=== PATIENT | female | born 1940 | race Caucasian/White ===

== ENCOUNTER 2019-03-13 15:27 | Emergency (ER) | payer MEDICARE ==
[~2019-03-13 15:27] MED LIST: Sodium Chloride Irrig Solution 250 ML BOT ONE
--- NOTE | 2019-03-13 15:59 | RAD ---
Radiograph right leg tibia-fibula 2 views: HISTORY: 78-year-old female with laceration injury FINDINGS: Osteopenia. No fracture of tibia or fibula. No radiopaque foreign body. Soft tissue edema. IMPRESSION: 1. No radiopaque foreign body or fracture. 2. Soft tissue edema.
[2019-03-13 16:07] LABS: #Basophils 0.1 thou/uL (0.0-0.2); #Eosinphils 0.3 thou/uL (0.0-0.7); #Lymphocytes 2.1 thou/uL (1.20-3.40); #Monocytes 0.8 thou/uL (0.11-0.59); #Neutrophils 7.4 thou/uL (1.40-6.50); %Basophils 0.9 % (0.0-1.0); %Eosinophils 3.1 % (0.0-10.0); %Lymphocytes 19.7 % (21.0-51.0); %Monocytes 7.7 % (0.0-10.0); %Neutrophils 68.6 % (42.0-75.0); Hemoglobin 11.9 g/dL (12.0-16.0); Mean Corpuscular HGB CONC 33.6 g/dL (32.0-36.0); Mean Corpuscular Hemoglobin 32.5 pg (27.0-31.0); Mean Corpuscular Volume 96.9 fL (78.0-98.0); Mean Platelet Volume 8.9 fL (7.4-10.4); Platelet Count 161 thou/uL (130-400); RBC Distribution Width 12.3 % (11.5-14.5); Red Blood Cell (RBC) Count 3.64 mill/uL (4.20-5.40); White Blood Cell (WBC) Count 10.7 thou/uL (4.8-10.8)
[2019-03-13 16:24] LABS: ALT (SGPT) 37 U/L (8-55); AST (SGOT) 41 U/L (5-34); Albumin 4.1 g/dL (3.4-4.8); Alkaline Phosphatase 114 U/L (40-150); Anion Gap 18 mmol/L (10-20); BUN (Urea Nitrogen) 49 mg/dL (9.8-20.1); Bilirubin, Total 0.4 mg/dL (0.2-1.2); CK (CPK) 145 U/L (29-168); Calc. Creatinine Clearance 0 mL/min (70-130); Carbon Dioxide 23 mmol/L (23-31); Chloride 105 mmol/L (98-107); Estimated GFR-MDRD 19; Globulin 2.9 g/dL (2.4-3.5); Glucose 260 mg/dL (83-110); Lipase 45 U/L (8-78); Potassium 5.2 mmol/L (3.5-5.1); Sodium 141 mmol/L (136-145)
--- NOTE | 2019-03-13 16:43 | CT ---
CT BRAIN NONCONTRAST: DATE: 03/13/2019 HISTORY: 78-year-old female status post head trauma FINDINGS: There is no evidence of acute intra-axial or extra-axial hemorrhage. There is no midline shift or any other mass effect. There is no extra-axial fluid collection. There is no evidence of obstructive hydrocephalus. Calvarium is intact. There are low attenuation areas in the white matter. These are no nspecific, but in a patient of this age, they are probably chronic ischemic white matter changes due to microvascular atherosclerosis. IMPRESSION: 1) No acute intracranial findings. 2) chronic ischemic white matter changes.
--- NOTE | 2019-03-13 16:45 | CT ---
CT CERVICAL SPINE NONCONTRAST: DATE: 03/13/2019 HISTORY: cervical trauma FINDINGS: There are no jumped or perched facets. There is no evidence of acute fracture. The vertebral body hei ghts are maintained. There is no prevertebral soft tissue swelling. IMPRESSION: No evidence of acute fracture or acute traumatic subluxation.
--- NOTE | 2019-03-13 16:55 | CT ---
CT THORAX NONCONTRAST CT ABDOMEN NONCONTRAST CT PELVIS NONCONTRAST CT THORACIC SPINE NONCONTRAST CT LUMBAR SPINE NONCONTRAST: (Trauma protocol) DATE: 03/13/2019 HISTORY: Trauma to the chest, abdomen, and pelvis TECHNIQUE: IV iodinated contrast media not administered because of chronic kidney disease.. No oral contrast media. Single phase scans of thorax, abdomen, and pelvis. Sagittal reconstructions of thoracic and lumbar spine. FINDINGS: Evaluation of laceration of organs is limited without IV contrast. Lungs: No contusion. Pleura: No pneumothorax or hemothorax. Thoracic aorta: No aneurysm or rupture. Mediastinum: No hematoma. Abdomen and pelvis: Liver: No surrounding fluid. Spleen: No surrounding fluid. Pancreas: No surrounding fluid or fat stranding. Kidneys: No hydronephrosis. 1.5 x 1.5 cm exophytic round mass protruding from posterior aspect of lef t renal midpole with density of 30 5HU. No surrounding fluid. Bladder: No gross evidence of rupture. Abdominal aorta: No aneurysm or rupture. Small bowel: No dilation. Colon: No adjacent fat stranding. Free air: None. Free fluid: None. Skeleton: Ribs: No grossly displaced acute fracture. Sternum: No grossly displaced acute fracture. Thoracic spine: No acute compression fracture. Lumbar spine: No acute compression fracture. Pelvis: No grossly displaced acute fracture. No dislocation. Multiple irregularly-shaped, ill-defined soft tissue densities throughout the subcutaneous fat of the pannus superficial to the lower anterior abdominal wall. IMPRESSION: 1. No evidence of acute traumatic injury within the thorax, abdomen, or pelvis. 2. Evidence for extensive contusion of abdominal pannus adipose, superficial to the lower anterior ab dominal wall 3. A 1.5 cm exophytic mass protruding from the posterior aspect of the left kidney. Possibilities inc lude hemorrhagic renal cyst versus renal cell carcinoma. Patient has a pacemaker which precludes MRI. Patient has chronic kidney disease which precludes IV contrast administration. Patient's body terrazas bitus and position of this mass would probably make visualization by ultrasound difficult. Recommend further evaluation beginning with renal ultrasound. If this mass is not visible or diagnost ic as either a definitive cyst or solid tumor on ultrasound, then serial follow-up noncontrast CT's of the abdomen would be recommended, beginning in 3 months.
== END 2019-03-13 17:56 | disposition short-term general hospital (02) ==
LOC: MADERS 15:27
DX: S80.811A Abrasion, right lower leg, initial encounter (principal); S39.91XA Unspecified injury of abdomen, initial encounter; E11.9 Type 2 diabetes mellitus without complications; K21.9 Gastro-esophageal reflux disease without esophagitis; I10 Essential (primary) hypertension; Z79.4 Long term (current) use of insulin; Z79.899 Other long term (current) drug therapy; V43.52XA Car driver injured in collision with other type car in traffic accident, initial encounter
CPT/HCPCS: 36415; 36416; 70450; 71250; 72125; 74177; 80053; 82550; 83690; 83880; 84484; 85025; 93005; 94760